=== PATIENT | female | born 1975 | race Caucasian/White ===

== ENCOUNTER → 2017-06-24 | Outpatient (CLI) | payer OTHER ==
[~2017-06-24] MED LIST: CLOTR1%T TOPICAL; DOCU1CAP39 PO; IBUP1TAB7 PO; KNEE IMMOBILIZE1 MIS; LAMI250T PO; OXYC1TAB36 PO; [UNRECOGNIZED DRUG - CODE]
[2017-06-24 12:29] LABS: BASOPHIL # 0.1 TH/MM3 (0-0.2); BASOPHIL % 0.9 % (0.0-2.0); EOSINOPHIL # 0.2 TH/MM3 (0-0.4); EOSINOPHIL % 2.3 % (0.0-4.0); HEMATOCRIT 35.1 % (35.0-46.0); HEMO FLAGS DIFF FINAL; LYMPH % 23.6 % (9.0-44.0); LYMPHOCYTE # 2.1 TH/MM3 (1.0-4.8); MEAN CELL VOLUME 74.2 FL (80.0-100.0); MEAN CORPUSCULAR HEMOGLOBIN 24.1 PG (27.0-34.0); MEAN CORPUSCULAR HGB CONC 32.4 % (32.0-36.0); MONO % 4.9 % (0.0-8.0); NEUT % 68.3 % (16.0-70.0); PLATELET COUNT 357 TH/MM3 (150-450); RED BLOOD COUNT 4.73 MIL/MM3 (4.00-5.30); RED CELL DISTRIBUTION WIDTH 15.3 % (11.6-17.2); WHITE BLOOD COUNT 8.7 TH/MM3 (4.0-11.0)
[2017-06-24 12:57] LABS: ANION GAP 6 MEQ/L (5-15); BICARBONATE 25.9 MEQ/L (21.0-32.0); BLOOD UREA NITROGEN 14 MG/DL (7-18); CHLORIDE 105 MEQ/L (98-107); GLOMERULAR FILTRATION RATE 74 ML/MIN (>89); GLUCOSE,FASTING 87 MG/DL (74-99); POTASSIUM 4.2 MEQ/L (3.5-5.1); SODIUM (NA) 137 MEQ/L (136-145)
[2017-06-24 13:05] LABS: BHCG SCREEN QUALITATIVE LESS THAN 1 MIU/ML (0-5)
[2017-06-24 13:10] LABS: BLOOD, URINE NEG (NEG); GLUCOSE,URINE NEG (NEG); KETONE, URINE NEG (NEG); MUCUS URINE FEW /lpf (OCC); NITRITE,URINE NEG (NEG); SQUAMOUS EPITHELIAL CELL URINE 1 /hpf (0-5); URINE COLOR YELLOW (YELLW/STRAW)
== END ==
LOC: CPRE 11:17
PROVIDERS: ATTEND Obstetrics & Gynecology
DX: Z01.812 Encounter for preprocedural laboratory examination (principal); D25.9 Leiomyoma of uterus, unspecified
CPT/HCPCS: 36415; 80048; 81001; 84703; 85025

== ENCOUNTER 2017-06-30 06:58 | Inpatient (IN) | payer OTHER ==
[~2017-06-30] VITALS: Ht 162.6 cm; Wt 109.2 kg
[~2017-06-30 06:58] MED LIST changes: -CLOTR1%T TOPICAL; -DOCU1CAP39 PO; -IBUP1TAB7 PO; -KNEE IMMOBILIZE1 MIS; -OXYC1TAB36 PO; -[UNRECOGNIZED DRUG - CODE]
[2017-06-30] MEDS ORDERED: METOPROLOL TARTRATE 25 MG TAB PO PRN (07:30)
[2017-06-30] MEDS ORDERED: CHLORHEXIDINE GLUCONATE 2 % 1 PACK (2 CLOTHS) TOPICAL PRN (07:30)
[2017-06-30] MEDS ORDERED: SODIUM CHLORID 0.9% 500 ML IV PRN (07:30)
[2017-06-30] MEDS ORDERED: INSULIN HUMAN REGULAR 1,000 UNITS/10 ML VIAL SQ PRN (07:30)
[2017-06-30] MEDS ORDERED: LACTATED RINGER'S 1000 ML IV PRN (07:30)
[2017-06-30] MEDS: POVIDONE IODINE 5% (ANTISEPSIS KIT) 4 APPLICATIONS EACH NARE PRN (08:04)
[2017-06-30] MEDS ORDERED: ceFAZolin 2 GM PREMIX 50 ML IV SCH (08:15)
[2017-06-30] MEDS ORDERED: HYDROmorphone HCL PF 2 MG/ML VIAL ONE (11:40)
[2017-06-30] MEDS ORDERED: ACETAMINOPHEN 1000 MG/100 ML 100 ML IV ONE (11:40)
[2017-06-30] MEDS ORDERED: VASOPRESSIN 20 UNITS/ML VIAL (IVTITR) ONE (11:57)
[2017-06-30] MEDS ORDERED: MICROFIBRILLAR COLLAGEN HEMOSTAT 1 GM PKT ONE (11:57)
[2017-06-30] MEDS ORDERED: METHYLENE BLUE 10 MG/ML VIAL IV ONE (15:22)
[2017-06-30] MEDS ORDERED: FUROSEMIDE 40 MG/4 ML VIAL ONE (15:33)
[2017-06-30] MEDS ORDERED: LACTATED RINGER'S 1000 ML INJ 1,000 ML IV SCH (15:40)
[2017-06-30] MEDS ORDERED: ONDANSETRON ODT 4 MG TAB SL PRN (15:45)
[2017-06-30] MEDS ORDERED: ONDANSETRON HCL 4 MG/2 ML VIAL IV PUSH PRN (15:45)
[2017-06-30] MEDS ORDERED: diphenhydrAMINE HCL 50 MG/ML VIAL IV PUSH PRN (15:45)
[2017-06-30] MEDS ORDERED: SODIUM CHLORIDE 0.9% FLUSH 10 ML FLUSH IV FLUSH PRN (15:45)
[2017-06-30] MEDS ORDERED: NALOXONE HCL 0.4 MG/ML AMP IV PUSH PRN (15:45)
[2017-06-30] MEDS ORDERED: LORazepam 0.5 MG TAB PO PRN (15:45)
[2017-06-30] MEDS ORDERED: ZOLPIDEM TARTRATE 5 MG TAB PO PRN (15:45)
[2017-06-30] MEDS ORDERED: PCA - TOTAL MG MORPHINE DELIVERED PER SHIFT SCH (15:45)
[2017-06-30] MEDS ORDERED: oxyCODONE/ACETAMINOPHEN 10 MG/325 MG TAB PO PRN (15:45)
--- NOTE | 2017-06-30 15:45 | HHI.PR ---
Immediate Post Op Note Procedure Date: Jun 30, 2017 Pre Op Diagnosis: (1) Uterine leiomyoma (2) Premenopausal menorrhagia (3) Primary dysmenorrhea Post Op Diagnosis: (1) Uterine leiomyoma (2) Premenopausal menorrhagia (3) Primary dysmenorrhea (4) Hydrosalpinx Surgeon: Syeda Lake MD Supervisory Investigative Specialist(s): Emily Steele MD Procedure: exam under anesthesia, exploratory laparotomy, uterine myomectomy, total abdominal hysterectomy, right salpingectomy, left salpingectomy Findings: enlarged 16 week size leiomyomatous uterus, largest subserosal approx 6 x 8 x 6 cm, removed separately to allow for visualization during the procedure; bilateral hydrosalpinges, suspected endometriosis of left fallopian, normal bilateral ovaries; additional leiomyoma palpated at cervical os approximately 3 x 2 cm; cervix smooth, mobile Complications: none Specimen(s) removed: uterine leiomyoma, right fallopian tube, left fallopian tube, uterus, cervix Estimated blood loss: 200 mL Anesthesia: General Drains: None Fluids: 4L IVF Urinary Output (mLs): 80 Patient to: PACU Patient Condition: Good Syeda Lake MD Jun 30, 2017 15:45
[2017-06-30] MEDS ORDERED: DO NOT ADM ANY ANTICOAGULANT DRUGS PRN (15:54)
[2017-06-30] MEDS ORDERED: ACETAMINOPHEN 1000 MG/100 ML 100 ML IV SCH (16:00)
[2017-06-30] MEDS ORDERED: *RESP: ALBUTEROL 2.5 MG/3 ML NEB (PRN) PERIprocedural Use ONLY NEB ONE (16:52)
[2017-06-30] MEDS: MORPHINE SULFATE 30 MG/30 ML PCA IV SCH (17:32)
[2017-06-30] MEDS ORDERED: KETOROLAC TROMETHAMINE 30 MG/ML (IVP) VIAL IV PUSH SCH (18:00)
[2017-06-30] MEDS ORDERED: DOCUSATE SODIUM 100 MG CAP PO SCH (18:00)
[2017-06-30] MEDS ORDERED: NICOTINE 21 MG/24 HR PATCH T-DERMAL SCH (18:58)
[2017-06-30] MEDS: ACETAMINOPHEN 1000 MG/100 ML 100 ML IV SCH (19:00)
[2017-06-30 19:20] VITALS: BP 120/78; PULSE 76; RESP 20; TEMP 97.6; O2SAT 95
[2017-06-30 19:42] VITALS: BP 120/78; PULSE 76; RESP 20; TEMP 97.6; O2SAT 95
[2017-06-30 20:10] VITALS: O2SAT 97
[2017-06-30] MEDS ORDERED: SODIUM CHLORIDE 0.9% FLUSH 10 ML FLUSH IV FLUSH SCH (21:00)
[2017-06-30] MEDS: KETOROLAC TROMETHAMINE 30 MG/ML (IVP) VIAL IV PUSH SCH (21:37)
[2017-07-01] VITALS: BP 101/66; PULSE 77; RESP 18; TEMP 98
[2017-07-01] MEDS: ACETAMINOPHEN 1000 MG/100 ML 100 ML IV SCH ×2 (01:18→06:45)
[2017-07-01] MEDS: KETOROLAC TROMETHAMINE 30 MG/ML (IVP) VIAL IV PUSH SCH ×2 (02:49→09:20)
[2017-07-01] MEDS: MORPHINE SULFATE 30 MG/30 ML PCA IV SCH (02:50)
[2017-07-01 04:15] VITALS: BP 104/69; PULSE 77; RESP 17; TEMP 97.7
[2017-07-01 05:30] VITALS: O2SAT 98
[2017-07-01 05:57] LABS: AUTOMATED NEUTROPHIL # 13.4 TH/MM3 (1.8-7.7); BASOPHIL % 0.1 % (0.0-2.0); HEMATOCRIT 30.1 % (35.0-46.0); HEMO FLAGS DIFF FINAL; LYMPH % 5.3 % (9.0-44.0); LYMPHOCYTE # 0.8 TH/MM3 (1.0-4.8); MEAN CELL VOLUME 73.4 FL (80.0-100.0); MEAN CORPUSCULAR HEMOGLOBIN 23.2 PG (27.0-34.0); MEAN CORPUSCULAR HGB CONC 31.6 % (32.0-36.0); MONO % 2.9 % (0.0-8.0); NEUT % 91.7 % (16.0-70.0); PLATELET COUNT 297 TH/MM3 (150-450); WHITE BLOOD COUNT 14.6 TH/MM3 (4.0-11.0)
[2017-07-01 08:00] VITALS: BP 94/56; PULSE 50; RESP 18; TEMP 97.6; O2SAT 97
--- NOTE | 2017-07-01 08:09 | HHI.PR ---
Subjective Remarks Doing well, pain is well controlled, wants breakfast. Tolerated clears well last PM. Passing flatus. Voided this AM. Objective Vital Signs Vital Signs Date Time Temp Pulse Resp B/P (MAP) Pulse Ox O2 Delivery O2 Flow Rate FiO2 07/01/17 02:50 17 07/01/17 00:00 98.0 77 18 101/66 (78) 06/30/17 20:10 97 Nasal Cannula 2.00 06/30/17 19:42 97.6 76 20 120/78 (92) 95 06/30/17 17:45 54 16 126/60 (82) 92 Room Air 06/30/17 17:32 14 06/30/17 17:30 65 16 97 Room Air 06/30/17 17:15 98.0 62 16 123/67 (85) 97 Room Air 06/30/17 17:00 65 16 129/74 (92) 97 Room Air 06/30/17 16:45 71 16 126/75 (92) 94 Room Air 06/30/17 16:30 85 16 129/71 (90) 94 Room Air 06/30/17 16:15 79 16 126/69 (88) 98 Room Air 06/30/17 16:00 78 16 115/69 (84) 98 Room Air 06/30/17 15:50 98.2 70 16 109/69 (82) 95 Simple Mask 10 06/30/17 11:57 57 117/72 I/O 06/30/17 06/30/17 06/30/17 07/01/17 07/01/17 07/01/17 07:00 15:00 23:00 07:00 15:00 23:00 Intake Total 4200 ml 2114 ml Output Total 1150 ml 1450 ml Balance 3050 ml 664 ml Intake Oral 600 ml IV Total 200 ml 1514 ml Other 4000 ml Output Urine Total 950 ml 1450 ml Estimated Blood Loss 200 ml # Voids 1 Result Diagram: 07/01/173 07/01/17442 Objective Remarks Chest is clear, regular rate and rhythm. Abdomen is soft and non-distended. Incision with bandage in place; is clean and dry. Ext no CCE. A/P Assessment and Plan Post Op Day 1 d/c IV pain medications, transition to oral as needed shower, remove bandage if tolerates diet, pain controlled on po medications ok to d/c to home this afternoon Anticipate home today and return to office in two weeks reviewed postop precautions in detail; pt high risk due to obesity, poor nutrition, smoker Syeda Lake MD Jul 01, 2017 08:09
[2017-07-01] MEDS ORDERED: IBUP1TAB7 PO (08:11)
[2017-07-01] MEDS ORDERED: OXYC1TAB36 PO (08:11)
[2017-07-01] MEDS ORDERED: DOCU1CAP39 PO (08:11)
--- NOTE | 2017-07-01 08:17 | HHI.DS ---
Discharge Summary Admission Date Jun 30, 2017 at 06:58 Discharge Date: Jul 01, 2017 Admitting Diagnosis Premenopausal menorrhagia, enlarged multi-fibroid uterus, primary dysmenorrhea (1) S/P total abdominal hysterectomy Diagnosis: Principal ICD Codes: Z90.710 - Acquired absence of both cervix and uterus (2) Premenopausal menorrhagia Diagnosis: Principal ICD Codes: N92.4 - Excessive bleeding in the premenopausal period (3) Uterine leiomyoma Diagnosis: Principal ICD Codes: D25.9 - Leiomyoma of uterus, unspecified (4) Primary dysmenorrhea Diagnosis: Principal ICD Codes: N94.4 - Primary dysmenorrhea (5) Hydrosalpinx Diagnosis: Principal ICD Codes: 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 Not a candidate for hormonal therapy due to obesity and 1ppd smoking status. Desired definitive surgical management. Enlarged >16 wk multi-fibroid uterus visualized on preoperative imaging, reason for abdominal route. CBC/BMP: 07/01/17 0443 07/01/17 0443 Significant Findings Laboratory Tests Test 07/01/17 04:43 White Blood Count 14.6 TH/MM3 (4.0-11.0) Hemoglobin 9.5 GM/DL (11.6-15.3) Hematocrit 30.1 % (35.0-46.0) Mean Corpuscular Volume 73.4 FL (80.0-100.0) Mean Corpuscular Hemoglobin 23.2 PG (27.0-34.0) Mean Corpuscular Hemoglobin Concent 31.6 % (32.0-36.0) Neutrophils (%) (Auto) 91.7 % (16.0-70.0) Lymphocytes (%) (Auto) 5.3 % (9.0-44.0) Neutrophils # (Auto) 13.4 TH/MM3 (1.8-7.7) Lymphocytes # (Auto) 0.8 TH/MM3 (1.0-4.8) Estimat Glomerular Filtration Rate 83 ML/MIN (>89) PE at Discharge NAD A&Ox3 CTA b/l no wheeze RRR no murmur incision c/d/i steri strips in place NTND +BS soft no C/C/E x 4 Hospital Course Patient had uncomplicated operative course although hydrosalpinges were unknown prior to surgery. These were successfully removed as well. Patient did well overnight POD#0. On POD#1 she was voiding, passing flatus. Once pain was well controlled and pt was ambulating and tolerating diet she was discharged to home with office f/u in 1-2 weeks. Patient is aware she is high risk for infection and wound breakdown due to obesity and chronic tobacco use; reviewed in detail specific postop precautions and instructions for wound care. Pt Condition on Discharge: Good Discharge Disposition: Discharge Home Discharge Instructions DIET: Follow Instructions for: As Tolerated, No Restrictions Activities you can perform: Non Weight Bearing, Shower Only-No Bath, Pelvic Rest Activities to avoid: Weight Bearing, Strenuous Activity, Driving, Sexual Activity Additional Activity Instructio: no driving x 2 weeks pelvic rest, no sexual activity, no baths (showers only), no lifting x 6 weeks Syeda Lake MD Jul 01, 2017 08:17
[2017-07-01] MEDS ORDERED: REMOVE OLD PATCH T-DERMAL SCH (09:00)
--- NOTE | 2017-07-01 09:01 | MP ---
cc: PHYLLIS CINTRON M.D. DATE OF 1975 DATE OF SURGERY June 30, 2017 PREOPERATIVE DIAGNOSES 1. Enlarged leiomyomatous uterus. 2. Premenopausal menorrhagia. 3. Chronic pelvic pain. 4. Dysmenorrhea. POSTOPERATIVE DIAGNOSES 1. Enlarged leiomyomatous uterus. 2. Premenopausal menorrhagia. 3. Chronic pelvic pain. 4. Dysmenorrhea. 5. Bilateral hydrosalpinx. 6. Pelvic adhesive disease. 7. Postop day #0. INDICATIONS Ruthie Helms is a 41-year-old 1, para 1 who has a history of severely painful heavy menses worsening over the past few years. She is a one-pack per day smoker who is also morbidly obese so she was not a candidate for hormonal therapy. She had both intracavitary, intramural and subserosal leiomyomas visualized on office imaging. She desired definitive surgical management and thus was scheduled for hysterectomy. Due to premenopausal status the plan was to preserve the ovaries. PROCEDURES PERFORMED 1. Exam under anesthesia. 2. Exploratory laparotomy. 3. Uterine myomectomy. 4. Total abdominal hysterectomy. 5. Right salpingectomy. 6. Left salpingectomy. SURGEON Phyllis Cintron MD CIGAR MAKING SUPERVISOR SURGEON Emily Steele MD TYPE OF ANESTHESIA General. ESTIMATED BLOOD LOSS 200 mL. IV FLUID REPLACEMENT 4 liters. URINE OUTPUT 80 mL of concentrated urine in the Goyal bag at the end of the procedure. INTRAOPERATIVE FINDINGS Enlarged leiomyomatous uterus, approximate 16 weeks' size. The largest fibroid was obscuring the view of the lateral pelvic vasculature so this was removed prior to the hysterectomy portion; it was approximately 6 x 8 x 6 cm on its own. The bilateral fallopian tubes were swollen and edematous consistent with hydrosalpinges. This was an unknown diagnosis prior to surgery. The bilateral ovaries were within normal limits. There were some adhesions and bogginess to the uterus suggestive of both adenomyosis and possibly endometriosis. SPECIMEN 1. Uterus and cervix. 2. uterine leiomyoma. 3. Right fallopian tube. 4. Left fallopian tube. COMPLICATIONS None. COUNTS Sponge, lap, instrument, needle counts correct x2 at the conclusion of the procedure. PROPHYLAXIS Ancef 2 grams IV was given preoperatively. SCDs were on and functioning throughout the entire case. PROCEDURE IN DETAIL After reviewing the informed consent, the patient was taken to the operating suite where a time-out was completed to identify the patient, planned procedure and any allergies to drugs or drug products. The patient was placed in dorsal supine position and general anesthesia was administered without difficulty and found to be adequate. The abdomen and perineum were prepped and draped in normal sterile fashion. Goyal catheter was placed using sterile technique. Attention was turned abdominally where a Pfannenstiel's type skin incision was made with the scalpel, carried down to the underlying layer of fascia with the Bovie. The fascia was incised in the midline. The incision was extended laterally using sharp dissection with Collier scissors. Superior edge of the fascial incision was elevated with Giles clamps and rectus muscles were dissected off sharply. Giles clamps were then moved to the inferior edge of the fascial incision and again rectus muscles dissected off sharply with Collier scissors. The rectus muscles were in the midline. The peritoneum was identified and entered bluntly with the surgeon's finger. The incision was extended superiorly and inferiorly with good visualization of intraabdominal contents. Sterile, moist lap sponges were used to move the bowel out of the operative field. Self-retaining O'Rip-O'Haro retractor was then placed. At this time it was noted that the uterus was very broad with fibroid extending to the right pelvic sidewall that was obscuring views of the vasculature. It was felt to be safest to first remove the myoma. Dilute Pitressin was injected in the uterine subserous layer. Bovie cautery was used to enter the myometrium and, using gentle blunt and sharp dissection, the largest leiomyoma was eventually able to be shelled out and passed off the field for pathologic evaluation. The uterine defect was then repaired in a baseball type stitch using #1 Vicryl with excellent hemostasis. Next the right adnexa was isolated as the right fallopian tube was found to be enlarged and edematous which was an unknown finding prior to the procedure. Abnormal right fallopian tube was able to be elevated, from the ovary and its vascular pedicle and using the Enseal device it was successfully clamped, cauterized and excised with excellent hemostasis noted. The right round ligament was then doubly suture ligated and divided using 0 Vicryl. The mesosalpinx overlying the anterior portion of the uterus was developed down to create a bladder flap anteriorly. The left round ligament was then isolated and doubly suture ligated with 0 Vicryl, divided and again the mesosalpinx overlying this area was opened and developed anteriorly to develop a bladder flap on that side and to skeletonize the uterine vessels. The left adnexa was densely adherent to the posterior cul-de-sac and left ovarian fossa and sidewall. Using gentle blunt dissection it was eventually able to be freed. There was still somewhat thickened and edematous tissue; it was decided that the left fallopian tube would be removed after the hysterectomy portion of the procedure to allow for better visualization. The Enseal device was then used to successively clamp, cauterize and cut the uterine vasculature down to the level of the uterine arteries bilaterally. Stephanie clamps were then used to clamp beneath the level of the uterine cervix. The specimen was amputated using sharp dissection and was passed off the field to be evaluated by pathology. The vascular pedicles including the uterosacarl ligaments were secured with 0 Vicryl with excellent hemostasis noted and the vaginal cuff was closed in a running locking fashion with #1 Vicryl with excellent hemostasis noted. The uterosacral ligaments were tied together to allow for better pelvic floor support. At this time the left adnexa was then focused upon. Using gentle blunt and sharp dissection, eventually the left fallopian tube was able to be freed from its adhesions to the posterior cul-de-sac. It was elevated away from the left ovary. Using Enseal device left fallopian tube was successfully clamped, sealed and cut with excellent hemostasis noted. Specimen was passed off to be evaluated by pathology. The pelvis was irrigated and excellent hemostasis noted in all areas. Due to extensive adhesions Eviseal was used to seal over all sutured and sealed areas with excellent results. The anesthesia team had noted that at this time there was minimal urine output throughout the procedure. Methylene blue was given. 15 minutes was waited and there was no spill of the blue in the pelvis, although there was also very minimal output in the Goyal . The anesthesiologist administered a single dose of 10 mg of IV Lasix and an additional 1 liter bag of fluid. An additional 10 mL of urine was seen prior to leaving the operating room. Once the patient reached the PACU she diuresed well with over 1L of urine output. The peritoneum was closed in a running layer with 2-0 chromic. The fascia was closed in a running layer with #1 Vicryl. The subcutaneous tissue, which was approximately a 4 cm deep, was irrigated and suctioned and closed in two interrupted layers with 2-0 chromic. The skin was then cleaned and dried and closed in a running subcuticular layer with 4-0 Monocryl and Steri-Strips were placed as well as a standard dressing. The procedure concluded at this point. The patient was awoken from anesthesia without complication. DISPOSITION Her estimated length of stay is 1-2 days postoperatively. MD PARKER Aburto/JAZMÍN /3:53 PM /8:32 AM [email or web address]
[2017-07-01] MEDS ORDERED: IBUPROFEN 600 MG TAB PO PRN (15:45)
== END 2017-07-01 12:57 | disposition home or self-care (01) | DRG 742 ==
LOC: HSDI 06:58 → EDSTATUS 09:30 → H1EA 17:54
PROVIDERS: ADMIT Obstetrics & Gynecology; ATTEND Obstetrics & Gynecology
PROC: 0UT70ZZ Resection of Bilateral Fallopian Tubes, Open Approach (ICD-10-PCS; 2017-06-30)
PROC: 0UB90ZZ Excision of Uterus, Open Approach (ICD-10-PCS; 2017-06-30)
PROC: 0UTC0ZZ Resection of Cervix, Open Approach (ICD-10-PCS; 2017-06-30)
PROC: 0UT90ZZ Resection of Uterus, Open Approach (ICD-10-PCS; principal; 2017-06-30 12:22)
DX: D25.2 Subserosal leiomyoma of uterus (principal); Z68.41 Body mass index [BMI] 40.0-44.9, adult; E66.01 Morbid (severe) obesity due to excess calories; N70.11 Chronic salpingitis; D25.1 Intramural leiomyoma of uterus; G89.29 Other chronic pain; N73.6 Female pelvic peritoneal adhesions (postinfective); N94.6 Dysmenorrhea, unspecified; N92.4 Excessive bleeding in the premenopausal period; N92.0 Excessive and frequent menstruation with regular cycle; F17.210 Nicotine dependence, cigarettes, uncomplicated
CPT/HCPCS: 82565; 85025; 86850; 86900; 86901; 88307; 88311; 94150; 94664; J0131; J0690; J1170; J1885; J1940; J2270; J7120; J7613